=== PATIENT | female | born 1960 | race Caucasian/White ===

== ENCOUNTER → 2018-06-21 | Outpatient (CLI) | payer OTHER ==
[~2018-06-21] MED LIST: ACETAMINOPHEN650 M5 PO; AMITRIPTYLINE H50 M2 PO; ASPIRIN EC81 M1 PO; B-COMPLEX-VITA1 EACH PO; CARAFATE 1 GM TA1 GM PO; NIASPAN ER 101000 M1 PO; OMEGA-3 + VITA1 EAC1 PO; PANTOPRAZOLE SO40 M1 PO; TRAMADOL 50 MG50 MG PO; VALIUM10 MG PO; VITAMIN D400 UNI1 PO; XANAX 0.5 MG0.5 MG PO; ZETIA10 MG
== END ==
LOC: M.MRI 17:05
DX: R41.3 Other amnesia (principal); R41.82 Altered mental status, unspecified; R26.81 Unsteadiness on feet; E78.00 Pure hypercholesterolemia, unspecified

== ENCOUNTER → 2019-07-02 | Outpatient (CLI) | payer OTHER ==
--- NOTE | 2019-07-14 19:25 | EEG ---
[address] [address] EEG STUDY REPORT Name: JUNIORANTOINETTESamKALINA L Room: [facility]#: [id number] Admission: 07/02/19 Attend Phys: Henrry Carlos MD Discharge: Date of : 60 Report #: [id number] THIS REPORT FOR: //name// CC: Brina Carlos DATE OF SERVICE: 07/02/2019 This patient is being evaluated for decreased memory. EEG was done by placing the electrode by standard 10-20 system of electrode placement. Both referential and sequential montages were used for recording. Background activity in this patient's EEG is about 9 Hz and 30 microvolt. This is a symmetrical activity. The patient went to sleep and that is associated with bilateral slowing and vertex sharp waves. Photic stimulation was unremarkable. Throughout the record, no active epileptiform activity was noticed. IMPRESSION: This patient's EEG is unremarkable. Thank you very much for this referral. <ELECTRONICALLY SIGNED> By: Henrry Carlos MD 07/14/19 [id number] Carlos MD /nt
== END ==
LOC: M.MRI 03-16 12:48 → M.CRD 12:49
DX: G45.9 Transient cerebral ischemic attack, unspecified (principal); Z86.69 Personal history of other diseases of the nervous system and sense organs; Z88.8 Allergy status to other drugs, medicaments and biological substances